=== PATIENT | female | born 1930 | race Caucasian/White ===

== ENCOUNTER 2019-03-28 09:20 | Outpatient (CLI) | payer MEDICARE ==
--- NOTE | 2019-03-28 10:36 | BD ---
BONE DENSITOMETRY: INDICATIONS: Osteoporosis screening. Postmenopausal. FINDINGS: LUMBAR SPINE BMD (g/cm2) T-SCORE L1 1.247 2.3 L2 1.260 2.1 L3 1.322 2.2 L4 1.269 1.9 TOTAL 1.277 2.1 FEMORAL NECK DENSITY 0.573 -2.5 TOTAL 0.746 -1.6 IMPRESSION: 1. The bone mineral density of the lumbar spine is within normal limits. The lumbar spine density m ay be erroneously elevated due to degenerative sclerosis. 2. The bone mineral density of the femoral neck indicates osteoporosis. POS: [facility]
== END 2019-03-28 09:21 | disposition home or self-care (01) ==
LOC: BICMAMMO 09:20
PROVIDERS: ATTEND Internal Medicine Rheumatology
DX: M81.0 Age-related osteoporosis without current pathological fracture (principal); G95.89 Other specified diseases of spinal cord
CPT/HCPCS: 77080

== ENCOUNTER 2019-10-16 14:19 | Inpatient (IN) | payer MEDICARE ==
[2019-10-16 14:49] LABS: Bacteria/HPF 4+ HPF (None Seen); Bilirubin Negative (Negative); Blood, Urine 1+ (Negative); Clarity Turbid (Clear); Glucose, Urine (Dipstick) Normal (Negative); Leukocyte 500 Leu/uL (Negative); Nitrite 2+ (Negative); Protein, Urine (Dipstick) 10 mg/dL (Neg-Trace); RBC/HPF 0-3 HPF (0-3); Urobilinogen Normal mg/dL (Less than 2); WBC/HPF Greater than 50 HPF (0-3)
[2019-10-16 14:57] LABS: #Basophils 0.1 thou/uL (0.0-0.2); #Eosinphils 0.1 thou/uL (0.0-0.7); #Lymphocytes 1.6 thou/uL (1.20-3.40); #Monocytes 0.9 thou/uL (0.11-0.59); #Neutrophils 6.6 thou/uL (1.40-6.50); %Basophils 0.7 % (0.0-1.0); %Eosinophils 1.5 % (0.0-10.0); %Lymphocytes 17.5 % (21.0-51.0); %Monocytes 9.7 % (0.0-10.0); %Neutrophils 70.6 % (42.0-75.0); Hemoglobin 14.1 g/dL (12.0-16.0); Mean Corpuscular HGB CONC 33.2 g/dL (32.0-36.0); Mean Corpuscular Hemoglobin 33.3 pg (27.0-31.0); Mean Platelet Volume 8.8 fL (7.4-10.4); Platelet Count 143 thou/uL (130-400); RBC Distribution Width 13.1 % (11.5-14.5); Red Blood Cell (RBC) Count 4.25 mill/uL (4.20-5.40); White Blood Cell (WBC) Count 9.4 thou/uL (4.8-10.8)
--- NOTE | 2019-10-16 15:06 | RAD ---
FRONTAL RADIOGRAPH CHEST PORTABLE UPRIGHT: Date: 10/16/2019 COMPARISON: 08/24/2019. HISTORY: Confusion and weakness, altered mental status. FINDINGS: Shallow inspiration and kyphotic positioning limits detailed assessment. Heart and mediastinal contou rs appear grossly unchanged. Midline sternotomy wires are present. There is degenerative change invol ving bilateral shoulders. No focal consolidation or alveolar edema. IMPRESSION: Limited portable chest radiograph demonstrating no focal consolidation or alveolar edema. POS: [facility]
[2019-10-16] MEDS ORDERED: cefTRIAXone\\ROCEPHIN 2 GM VIAL ONE (15:14)
[2019-10-16 15:21] LABS: ALT (SGPT) 11 U/L (8-55); AST (SGOT) 18 U/L (5-34); Albumin 3.7 g/dL (3.4-4.8); Alkaline Phosphatase 59 U/L (40-110); Anion Gap 12 mmol/L (10-20); BUN (Urea Nitrogen) 16 mg/dL (9.8-20.1); Bilirubin, Total 2.1 mg/dL (0.2-1.2); Calc. Creatinine Clearance 0 mL/min (70-130); Calcium 10.1 mg/dL (7.8-10.44); Carbon Dioxide 31 mmol/L (23-31); Chloride 100 mmol/L (98-107); Estimated GFR-MDRD 32; Globulin 2.9 g/dL (2.4-3.5); Glucose 102 mg/dL (83-110); Magnesium 1.6 mg/dL (1.6-2.6); Potassium 4.1 mmol/L (3.5-5.1); Protein, Total 6.6 g/dL (6.0-8.3); Sodium 139 mmol/L (136-145)
--- NOTE | 2019-10-16 15:22 | CT ---
CT BRAIN WITHOUT CONTRAST: 10/16/19 HISTORY: Altered mental status. FINDINGS: Correlation is made with the MRI of 09/18/19. 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 The ventricular size is appropriate and the basilar cisterns patent. No evidence of acute infarct, hemorrhage, midline shift, or abnormal extra-axial fluid collections ar e seen. The bony calvarium is intact. There is opacification of the left maxillary sinus. IMPRESSION: No CT evidence of acute intracranial process. POS: [facility]
[2019-10-16 15:43] LABS: CKMB 1.1 ng/mL (0-6.6)
[2019-10-16] MEDS ORDERED: Aspirin Chewable 81 MG TAB ONE (15:47)
[2019-10-16] MEDS ORDERED: Acetaminophen 325 MG TAB PO PRN (21:02)
[2019-10-16] MEDS ORDERED: Lisinopril 10 MG TAB PO PRN (21:09)
[2019-10-16] MEDS ORDERED: Carvedilol 3.125 MG TAB PO SCH (21:15)
[2019-10-16] MEDS ORDERED: Sodium Chloride 0.9% 1,000 ML IV SCH (21:15)
--- NOTE | 2019-10-16 21:22 | PDOC.HHP ---
Hospitalist HPI - History of Present Illness AMS History of Present Illness: PCP: Dr. Elam The patient is confused, so the H&P was obtained from the patient's daughter, Kelsey Sosa via telephone. The patient is an 89/F with PMH significant for afib (rate controlled), HTN, HLD , hypothyroidism that presents to the ER for the above complaint. Ms. Sosa reports that over the past month, the patient's mental status has been fluctuating. Reports some intermittent confusion and having to prompt her to bathe and eat meals. She is able to complete the tasks, but she needs to be directed to do so. Reports that she was recently diagnosed with UTI, started on nitrofurantoin. Her mental status improved while taking the nitrofurantoin, however, over the past week her mental status has been declining again. She also reports that her mother has lived with her over the past 2 years, since the loss of her spouse. She reports she has been on a steady decline ever since. Denies any recent falls or trauma. Denies any changes to home medication regimen. Denies any recent surgeries. Admits to recent UTI with antibiotic therapy. ED Course: T 98.7F, BP 146/98, HR 93, RR 18, Spo2 95% RA UA 4+ bacteria, wBC > 50, + nitrites EKG afib, rate controlled 81 bpm CXR negative for acute cardiopulmonary process CT brain negative for hemorrhage Trop 0.075 LA 1.6 Given 1L NS rocephin 1gm IVPB ASA 324mg Hospitalist ROS - Review of Systems Constitutional: denies: fever, chills, malaise Eyes: denies: pain, vision change, conjunctivae inflammation, eyelid inflammation, redness, other ENT: denies: ear pain, ear discharge, nose pain, nose discharge, nose congestion , mouth pain, mouth swelling, throat pain, throat swelling, other Respiratory: denies: cough, dry, shortness of breath, hemoptysis, SOB with excertion, pleuritic pain, sputum, wheezing, other Cardiovascular: denies: chest pain, palpitations, orthopnea, paroxysmal noc. dyspnea, edema, light headedness, other Gastrointestinal: denies: nausea, vomiting, abdominal pain, diarrhea, constipation, melena, hematochezia, other Genitourinary: reports: dysuria, frequency Musculoskeletal: denies: back pain Skin: denies: rash, bruising Neurological: reports: confusion. denies: weakness, change in speech Hospitalist History - Past Medical History Source: family Cardiac: reports: AFIB (rate controlled), HTN, Hyperlipidemia Gastrointestinal: reports: GERD Endocrine: reports: Hypothyroidism - Past Surgical History Past Surgical History: reports: no pertinent history - Family History Family History: reports: cancer (Breast), cardiac disorder - Social History Smoking Status: Never smoker Alcohol: reports: None Drugs: reports: none Living Situation: With Family Occupation: Lives in [place] with daughter Activity level: independent ambulation (Prompting with ADLs) - Exam General Appearance: NAD, awake alert General - other findings: A&O x 1 to person Eye: PERRL, anicteric sclera ENT: normocephalic atraumatic Neck: supple, no JVD, no thyromegaly, no lymphadenopathy Heart: no murmur, no gallops, no rubs, normal peripheral pulses, irregular Respiratory: CTAB, no wheezes, no rales, no ronchi Gastrointestinal: soft, non-tender, non-distended, normal bowel sounds, no guarding, no rigidity Extremities: no cyanosis, 1+ LE edema Neurological: no focal deficits Psychiatric: normal affect Psychiatric - other findings: oriented to person Hospitalist Results - Labs Result Diagrams: 10/16/19 14:48 10/16/19 14:48 Lab results: WBC 9.4 thou/uL (4.8-10.8) 10/16/19 14:48 Hgb 14.1 g/dL (12.0-16.0) 10/16/19 14:48 Hct 42.7 % (36.0-47.0) 10/16/19 14:48 MCV 100.0 fL (78.0-98.0) H 10/16/19 14:48 Plt Count 143 thou/uL (130-400) 10/16/19 14:48 Neutrophils % 70.6 % (42.0-75.0) 10/16/19 14:48 Sodium 139 mmol/L (136-145) 10/16/19 14:48 Potassium 4.1 mmol/L (3.5-5.1) 10/16/19 14:48 Chloride 100 mmol/L (98-107) 10/16/19 14:48 Carbon Dioxide 31 mmol/L (23-31) 10/16/19 14:48 BUN 16 mg/dL (9.8-20.1) 10/16/19 14:48 Creatinine 1.52 mg/dL (0.6-1.1) H 10/16/19 14:48 Glucose 102 mg/dL (83-110) 10/16/19 14:48 Lactic Acid 1.6 mmol/L (0.5-2.2) 10/16/19 14:48 Calcium 10.1 mg/dL (7.8-10.44) 10/16/19 14:48 Total Bilirubin 2.1 mg/dL (0.2-1.2) H 10/16/19 14:48 AST 18 U/L (5-34) 10/16/19 14:48 ALT 11 U/L (8-55) 10/16/19 14:48 Alkaline Phosphatase 59 U/L (40-110) 10/16/19 14:48 CK-MB (CK-2) 1.1 ng/mL (0-6.6) 10/16/19 14:48 Troponin I 0.075 ng/mL (< 0.028) H 10/16/19 14:48 Serum Total Protein 6.6 g/dL (6.0-8.3) 10/16/19 14:48 Albumin 3.7 g/dL (3.4-4.8) 10/16/19 14:48 Urine Ketones Negative mg/dL (Negative) 10/16/19 14:36 Urine Blood 1+ (Negative) A 10/16/19 14:36 Urine Nitrite 2+ (Negative) A 10/16/19 14:36 Ur Leukocyte Esterase 500 Kamryn/uL (Negative) A 10/16/19 14:36 Urine RBC 0-3 HPF (0-3) 10/16/19 14:36 Urine WBC Greater than 50 HPF (0-3) A 10/16/19 14:36 Ur Squamous Epith Cells 11-20 HPF (0-3) A 10/16/19 14:36 Urine Bacteria 4+ HPF (None Seen) A 10/16/19 14:36 - EKG Interpretation EKG: afib, rate controlled - Radiology Interpretation Chest x-ray Status: report reviewed by me CT scan - head Status: report reviewed by me Hospitalist H&P A/P - Plan Plan: Impression: AMS UTI SCOTT Elevated troponin CKD III afib, rate controlled HTN HLD GERD hypothyroidism 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
[2019-10-16 21:40] LABS: Magnesium 1.5 mg/dL (1.6-2.6); Phosphorus 2.6 mg/dL (2.3-4.7)
[2019-10-16 21:44] LABS: Troponin I 0.078 ng/mL (< 0.028)
[2019-10-17] MEDS ORDERED: Magnesium 2 GM/50 ML 2 GM in Premix Bag 1 BAG IVPB SCH (00:30)
[2019-10-17 01:15] LABS: Troponin I 0.077 ng/mL (< 0.028)
[2019-10-17 05:27] LABS: #Eosinphils 0.2 thou/uL (0.0-0.7); #Lymphocytes 0.6 thou/uL (1.20-3.40); #Monocytes 0.6 thou/uL (0.11-0.59); #Neutrophils 8.6 thou/uL (1.40-6.50); %Basophils 0.3 % (0.0-1.0); %Eosinophils 2.2 % (0.0-10.0); %Lymphocytes 5.8 % (21.0-51.0); %Monocytes 6.3 % (0.0-10.0); %Neutrophils 85.4 % (42.0-75.0); Hemoglobin 13.1 g/dL (12.0-16.0); Mean Corpuscular HGB CONC 32.6 g/dL (32.0-36.0); Mean Corpuscular Hemoglobin 32.9 pg (27.0-31.0); Mean Platelet Volume 8.4 fL (7.4-10.4); Platelet Count 126 thou/uL (130-400); RBC Distribution Width 13.2 % (11.5-14.5); Red Blood Cell (RBC) Count 3.99 mill/uL (4.20-5.40); White Blood Cell (WBC) Count 10.1 thou/uL (4.8-10.8)
[2019-10-17] MEDS: Levothyroxine Sodium 50 MCG TAB PO SCH (05:28)
[2019-10-17 05:45] LABS: Anion Gap 10 mmol/L (10-20); BUN (Urea Nitrogen) 13 mg/dL (9.8-20.1); Calc. Creatinine Clearance 30 mL/min (70-130); Carbon Dioxide 24 mmol/L (23-31); Chloride 106 mmol/L (98-107); Estimated GFR-MDRD 42; Glucose 110 mg/dL (83-110); Magnesium 2.4 mg/dL (1.6-2.6); Potassium 3.3 mmol/L (3.5-5.1); Sodium 137 mmol/L (136-145)
[2019-10-17] MEDS ORDERED: Famotidine 20 MG TAB PO SCH (09:00)
[2019-10-17] MEDS: Calcium Carbonate + Vit D 250 MG TAB PO SCH (09:52)
[2019-10-17] MEDS: Atorvastatin Calcium 20 MG TAB PO SCH (09:53)
[2019-10-17] MEDS: Polyethylene Glycol 3350 17 GM Packet PO SCH (09:53)
[2019-10-17] MEDS: Aspirin 81 mg Enteric Coated Tablet PO SCH (09:53)
[2019-10-17] MEDS: Carvedilol 3.125 MG TAB PO SCH ×2 (09:53→20:56)
[2019-10-17] MEDS: Hyoscyamine Sulfate SL 0.125 mg Tablet PO SCH ×2 (09:53→20:56)
[2019-10-17] MEDS: Lisinopril 20 MG TAB PO SCH (09:53)
--- NOTE | 2019-10-17 09:56 | CON ---
DATE OF CONSULTATION: 10/17/2019 REASON FOR CONSULTATION: Elevated troponin. HISTORY OF PRESENT ILLNESS: Ms. Hannah is a very pleasant 89-year-old woman, who was seen and evaluated in the past. She has a history of CAD, status post bypass surgery x2 in addition to mitral valve annuloplasty. She re-presented with mental status changes. History is currently unobtainable. She is not oriented to time, person, or place. She does not know why she is in the hospital. She does have a previous history of atrial fibrillation, hypertension, hyperlipidemia, and hypothyroidism. PAST MEDICAL HISTORY: CAD, status post bypass surgery, mitral valve annuloplasty, hypertension, CVA, seasonal allergies, osteoporosis, previous PACs. HOME MEDICATIONS: Include: 1. Atorvastatin. 2. Carvedilol. 3. Hyoscyamine. 4. Benazepril. 5. Tramadol. 6. Aspirin. 7. Chandni. 8. Hydrochlorothiazide. 9. Calcium. 10. Tirosint. 11. Pantoprazole. SOCIAL HISTORY: No current alcohol or tobacco use. REVIEW OF SYSTEMS: Unobtainable. PHYSICAL EXAMINATION: GENERAL: Patient is a pleasant woman who is in no acute distress. The patient appears her stated age. VITAL SIGNS: Blood pressure 131/99, pulse 84, temperature 98.3. NEUROLOGIC: She is not oriented to time, person, or place. HEENT: Sclerae without icterus. Mouth has moist mucous membranes with normal pallor. NECK: No JVD. Carotid upstroke brisk. No bruits bilaterally. LUNGS: Clear to auscultation with unlabored respirations. BACK: No scoliosis or kyphosis. CARDIAC: Irregularly irregular. ABDOMEN: Soft, nontender, nondistended. No peritoneal signs present. No hepatosplenomegaly. No abnormal striae. EXTREMITIES: 2+ femoral and 2+ dorsalis pedis pulses. No cyanosis, clubbing, or edema. SKIN: No gross abnormalities. PERTINENT LABORATORY DATA: Hemoglobin 15.4, hematocrit 46.2. Peak troponin 0.04. Echo with Doppler dated 08/16/2019: LVEF 55% to 60%. Grade 3 diastolic dysfunction. Mild MR with [id number] TR. IMPRESSION: 1. Mental status changes. 2. Elevated troponin. 3. Atrial fibrillation. RECOMMENDATIONS: Ms. Hannah did have sinus rhythm with PACs while in the office last month. She now appears to have atrial fibrillation. At this point, we will try and seek a cause to her mental status changes. I am less concerned about her elevated troponin likely secondary to her underlying condition. Would likely need anticoagulation therapy long-term given new-onset atrial fibrillation. We would recommend Eliquis 2.5 mg one p.o. b.i.d. Otherwise, from my standpoint, I have no further recommendations. Job ID: [id number]
[2019-10-17] MEDS: cefTRIAXone\\ROCEPHIN 1 GM in Sodium Chloride 0.9% 100 ML IVPB SCH (15:41)
--- NOTE | 2019-10-17 19:04 | PRG ---
DATE OF SERVICE: 10/17/2019 PRIMARY CARE PHYSICIAN: Dr. Elam. SUBJECTIVE: This is an 89-year-old female with hypertension, hyperlipidemia, hypothyroidism and coronary artery disease, presented to the emergency room with altered mentation. Her workup was consistent with urinary tract infection along with atrial fibrillation. Per Cardiology, the patient was in sinus rhythm last month. Her mentation is slowly improving. She denies any complaints at this time. CURRENT MEDICATIONS: Reviewed. REVIEW OF SYSTEMS: Cannot be reliably obtained due to current mentation. PHYSICAL EXAMINATION: VITAL SIGNS: Temperature of 97.8, pulse of 89, respirations of 20, and blood pressure of 111/67 with O2 saturation 96% on room air. GENERAL: This is an 89-year-old female, in no apparent distress. Mentation is improving. LUNGS: Diminished air entry at bilateral bases with few rhonchi and rales. No wheezing. No accessory muscle use. HEART: S1 and S2 present, irregularly irregular. No rubs or gallops. 2/6 systolic murmur over the mitral area. ABDOMEN: Soft and nontender. Bowel sounds present. No rebound or guarding. No costovertebral angle tenderness. EXTREMITIES: Trace edema in bilateral lower extremity. PSYCHIATRIC: The patient is alert with intermittent confusion. NEUROLOGIC: No new focal deficit. LABORATORY DATA: CBC showed WBC of 10.1 with hemoglobin of 13.1, hematocrit of 40.2, platelet of 126. Chemistry showed sodium of 137, potassium 3.3, chloride of 106, bicarb of 24, BUN of 13, and creatinine of 1.2. Telemetry monitoring by my review showed sinus rhythm. Urine culture showed E coli, sensitivities pending. Blood cultures were negative. Chest x-ray by my review was negative for infiltrate. CT scan of the brain was negative for acute findings. IMPRESSION: 1. Toxic metabolic encephalopathy present on admission. 2. Escherichia coli urinary tract infection. 3. Acute kidney injury on chronic kidney disease, stage 3. 4. Elevated troponin secondary to demand ischemia, suspected type 2 myocardial infarction present on admission. 5. New-onset atrial fibrillation, rate controlled. 6. Hypertension. 7. Hyperlipidemia. 8. Gastroesophageal reflux disease. 9. Hypothyroidism. 10. Abnormal LFTs of unclear etiology. 11. Thrombocytopenia. PLAN: We will continue telemetry monitoring. We will continue ceftriaxone. Magnesium was replaced. IV fluid will be discontinued. We will continue carvedilol. Cardiology recommended Eliquis 2.5 mg twice a day. I discussed with the daughter at the bedside. She will discuss with other family members and let us know tomorrow. We will continue levothyroxine. We will continue other home medications. Recheck labs in a.m. We will check folic acid and vitamin B12 due to macrocytosis that could probably be contributing to her encephalopathy. The patient and the family understands the above plan of care. Job ID: [id number]
[2019-10-18] MEDS ORDERED: Sodium Chloride 0.9% 250 ML IV SCH (04:00)
[2019-10-18 04:29] LABS: #Eosinphils 0.3 thou/uL (0.0-0.7); #Monocytes 0.9 thou/uL (0.11-0.59); #Neutrophils 6.2 thou/uL (1.40-6.50); %Basophils 0.5 % (0.0-1.0); %Lymphocytes 11.7 % (21.0-51.0); %Monocytes 10.5 % (0.0-10.0); %Neutrophils 73.2 % (42.0-75.0); Hemoglobin 12.6 g/dL (12.0-16.0); Mean Corpuscular HGB CONC 32.6 g/dL (32.0-36.0); Mean Corpuscular Hemoglobin 33.2 pg (27.0-31.0); Mean Platelet Volume 8.5 fL (7.4-10.4); Platelet Count 130 thou/uL (130-400); RBC Distribution Width 13.3 % (11.5-14.5); Red Blood Cell (RBC) Count 3.81 mill/uL (4.20-5.40); White Blood Cell (WBC) Count 8.5 thou/uL (4.8-10.8)
[2019-10-18 04:49] LABS: ALT (SGPT) 10 U/L (8-55); AST (SGOT) 13 U/L (5-34); Albumin 2.9 g/dL (3.4-4.8); Alkaline Phosphatase 49 U/L (40-110); Anion Gap 12 mmol/L (10-20); BUN (Urea Nitrogen) 10 mg/dL (9.8-20.1); Bilirubin, Total 1.2 mg/dL (0.2-1.2); Calc. Creatinine Clearance 33 mL/min (70-130); Calcium 8.4 mg/dL (7.8-10.44); Carbon Dioxide 24 mmol/L (23-31); Chloride 105 mmol/L (98-107); Estimated GFR-MDRD 47; Globulin 2.6 g/dL (2.4-3.5); Glucose 106 mg/dL (83-110); Potassium 3.5 mmol/L (3.5-5.1); Protein, Total 5.5 g/dL (6.0-8.3); Sodium 137 mmol/L (136-145)
[2019-10-18] MEDS: Levothyroxine Sodium 50 MCG TAB PO SCH (05:46)
[2019-10-18] MEDS: Saccharomyces boulardii 250 MG CAP PO SCH (09:51)
[2019-10-18] MEDS: Polyethylene Glycol 3350 17 GM Packet PO SCH (09:51)
[2019-10-18] MEDS: Aspirin 81 mg Enteric Coated Tablet PO SCH (09:51)
[2019-10-18] MEDS: Carvedilol 3.125 MG TAB PO SCH ×2 (09:52→21:54)
[2019-10-18] MEDS: Lisinopril 20 MG TAB PO SCH (09:52)
[2019-10-18] MEDS: Atorvastatin Calcium 20 MG TAB PO SCH (09:52)
[2019-10-18] MEDS: Calcium Carbonate + Vit D 250 MG TAB PO SCH (09:52)
[2019-10-18] MEDS: Hyoscyamine Sulfate SL 0.125 mg Tablet PO SCH ×2 (09:56→22:09)
[2019-10-18] MEDS: cefTRIAXone\\ROCEPHIN 1 GM in Sodium Chloride 0.9% 100 ML IVPB SCH (15:15)
[2019-10-18] MEDS ORDERED: Cyanocobalamin (Vitamin B-12) 1,000 MCG TAB PO SCH (21:00)
--- NOTE | 2019-10-18 23:34 | PDOC.HOSPP ---
- Subjective Encounter Date: 10/18/19 Encounter Time: 17:30 Subjective: Patient seen and examined for Encephalopathy - improving. No CP or SOB. Eating better. Participated in therapy. No new complaints. Overnight events noted - Objective Vital Signs & Weight: Vital Signs (12 hours) Temp Pulse Pulse Pulse Resp BP BP 10/18/19 20:00 10/18/19 19:00 97.9 F 82 15 10/18/19 15:22 98.4 F 86 18 10/18/19 14:03 79 87 101/67 104/70 BP Pulse Ox 10/18/19 20:00 95 10/18/19 19:00 109/70 95 10/18/19 15:22 97/63 98 10/18/19 14:03 Weight Admit Weight 127 lb 9.6 oz Weight 127 lb 9.6 oz I&O: 10/17/19 10/18/19 10/19/19 06:59 06:59 06:59 Intake Total 349 649 3304 Output Total 250 1625 Balance 656 700 675 Result Diagrams: 10/18/19 04:04 10/18/19 04:04 Radiology Reviewed by me: Yes (CXR - no infiltrate) EKG Reviewed by me: Yes (Tele Afib) Hospitalist ROS - Review of Systems Cardiovascular: denies: chest pain, palpitations, orthopnea, paroxysmal noc. dyspnea, edema, light headedness, other Gastrointestinal: denies: nausea, vomiting, abdominal pain, diarrhea, constipation, melena, hematochezia, other - Medication Medications: Active Medications Generic Name Dose Route Start Last Admin Trade Name Freq PRN Reason Stop Dose Admin Aspirin 81 mg 10/17/19 09:00 10/18/19 09:51 Ecotrin PO 81 mg DAILY JENNI Administration Atorvastatin Calcium 20 mg 10/17/19 09:00 10/18/19 09:52 Lipitor PO 20 mg DAILY JENNI Administration Calcium/Vitamin D 250 mg 10/17/19 09:00 10/18/19 09:52 Oscal + Vit D PO 250 mg DAILY JENNI Administration Carvedilol 3.125 mg 10/17/19 09:00 10/18/19 21:54 Coreg PO 3.125 mg BID JENNI Administration Cyanocobalamin 1,000 mcg 10/18/19 21:00 10/18/19 21:54 Vitamin B-12 PO 1,000 mcg HS JENNI Administration Hyoscyamine Sulfate 0.125 mg 10/17/19 09:00 10/18/19 22:09 Levsin Sl PO 0.125 mg BID JENNI Administration Ceftriaxone Sodium 1 gm/ 100 mls @ 200 mls/hr 10/17/19 16:00 10/18/19 15:15 Sodium Chloride IVPB 100 mls Q24HR JENNI Administration Levothyroxine Sodium 50 mcg 10/17/19 06:00 10/18/19 05:46 Synthroid PO 50 mcg 0600 JENNI Administration Lisinopril 20 mg 10/17/19 09:00 10/18/19 09:52 Zestril PO 20 mg DAILY JENNI Administration Pantoprazole Sodium 40 mg 10/17/19 09:00 10/18/19 09:52 Protonix PO 40 mg DAILY JENNI Administration Polyethylene Glycol 17 gm 10/17/19 09:00 10/18/19 09:51 Miralax PO 17 gm DAILY JENNI Administration Saccharomyces Boulardii 250 mg 10/18/19 09:00 10/18/19 09:51 Florastor PO 250 mg DAILY JENNI Administration Sodium Chloride 10 ml 10/16/19 21:02 10/16/19 22:42 Flush - Normal Saline IVF 10 ml PRN PRN Administration Saline Flush - Exam General Appearance: NAD Heart: no gallops, no rubs, normal peripheral pulses, irregular Respiratory: no wheezes, no rales, no ronchi, normal chest expansion Gastrointestinal: soft, non-tender, non-distended, normal bowel sounds Neurological: no new deficit Psychiatric: normal affect, A&O x 3 Psychiatric - other findings: intermittent confusion Hosp A/P - Plan PT/OT, DVT proph w/SCDs Toxic Metabolic Encephalopathy (POA) - multifactorial E coli UTI SCOTT on CKD 3 Elevated troponin/?Type 2 [place] - POA New onset Afib - family declining anticoag - understands the risk NSVT Swallow dysfunction HTN HLD GERD Hypothyroidism Plan: Continue Rocephin Cont ASA Blood CX negative Cont IVF HCTZ on hold due to SCOTT Cont other meds as below Cont PT/OT DC planning in 24-48 hr DC Novoa in AM
[2019-10-19 04:42] VITALS: BMI 28.8
[2019-10-19] MEDS: Levothyroxine Sodium 50 MCG TAB PO SCH (06:04)
[2019-10-19] MEDS: Carvedilol 3.125 MG TAB PO SCH (08:49)
[2019-10-19] MEDS: Saccharomyces boulardii 250 MG CAP PO SCH (08:49)
[2019-10-19] MEDS: Calcium Carbonate + Vit D 250 MG TAB PO SCH (08:49)
[2019-10-19] MEDS: Aspirin 81 mg Enteric Coated Tablet PO SCH (08:49)
[2019-10-19] MEDS: Atorvastatin Calcium 20 MG TAB PO SCH (08:49)
[2019-10-19] MEDS: Lisinopril 20 MG TAB PO SCH (08:49)
[2019-10-19] MEDS: Hyoscyamine Sulfate SL 0.125 mg Tablet PO SCH (10:33)
[2019-10-19] MEDS: Polyethylene Glycol 3350 17 GM Packet PO SCH (10:33)
--- NOTE | 2019-10-19 13:00 | DIS ---
DATE OF ADMISSION: 10/16/2019 DATE OF DISCHARGE: 10/19/2019 DISCHARGE DISPOSITION: Home with home health care. ALLERGIES: THE PATIENT IS ALLERGIC TO SULFA. FOLLOWUP: Follow up with primary care physician, Dr. Elam in 1 week. [facility] has been arranged. DISCHARGE MEDICATIONS: 1. Omnicef 300 mg b.i.d. 2. Vitamin B12 1000 mcg daily. 3. HCTZ has been changed to p.r.n. for edema. 4. Multivitamin 1 tablet daily. 5. Florastor 250 mg daily. 6. All other home medications were left unchanged. The patient was seen and examined on the day of discharge. Denies any new complaints. No chest pain, shortness of breath, or palpitations reported. 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 Suarez. BRIEF HOSPITAL COURSE: The patient is an 89-year-old female with paroxysmal atrial fibrillation, coronary artery disease, presented to the hospital with altered mentation. Workup was consistent with E coli UTI along with acute kidney injury as well as atrial fibrillation. Her troponins were elevated at 0.078. She was started on antibiotics. Urine culture showed E coli, which was pansensitive. Antibiotics have been changed to p.o. Blood culture remained negative. For atrial fibrillation, the patient was advised to continue carvedilol. Anticoagulation was recommended by Cardiology, however, the family declined. They understand the risk of stroke without anticoagulation. The patient was also found to have acute kidney injury with creatinine 1.52 on admission. This improved with IV hydration. Creatinine at discharge is 1.1. Hydrochlorothiazide has been changed to p.r.n. She was advised to watch her fluid intake and to stay under 2 L a day. FINAL DIAGNOSES: 1. Toxic metabolic encephalopathy, resolved. 2. Escherichia coli urinary tract infection. 3. Acute kidney injury on chronic kidney disease stage 3. 4. Elevated troponin, suspected due to type 2 myocardial infarction. 5. New onset atrial fibrillation. The patient was in sinus rhythm last month when she was evaluated by Dr. Suarez. Please note that the family declined anticoagulation. 6. Nonsustained ventricular tachycardia. 7. Swallow dysfunction. 8. Hypertension. 9. Hyperlipidemia. 10. Gastroesophageal reflux disease. 11. Hypothyroidism. 12. The patient understands the above plan of care. Job ID: [id number]
[2019-10-19 15:59] VITALS: BP 113/64; TEMP 98
== END 2019-10-19 15:54 | disposition home or self-care (01) | DRG 280 ==
LOC: ERS 14:19 → 2SW 15:55 → OBSVTOIN 15:55 → 2NO 10-17 19:09
PROVIDERS: ADMIT Emergency Medicine; ATTEND Internal Medicine
DX: I48.0 Paroxysmal atrial fibrillation (principal); G92 Toxic encephalopathy; I21.A1 Myocardial infarction type 2; N17.9 Acute kidney failure, unspecified; N39.0 Urinary tract infection, site not specified; I47.2 Ventricular tachycardia; N18.3 Chronic kidney disease, stage 3 (moderate); J30.2 Other seasonal allergic rhinitis; M81.0 Age-related osteoporosis without current pathological fracture; B96.20 Unspecified Escherichia coli [E. coli] as the cause of diseases classified elsewhere; E78.5 Hyperlipidemia, unspecified; K21.9 Gastro-esophageal reflux disease without esophagitis; E03.9 Hypothyroidism, unspecified; I12.9 Hypertensive chronic kidney disease with stage 1 through stage 4 chronic kidney disease, or unspecified chronic kidney disease; Z79.01 Long term (current) use of anticoagulants; Z86.73 Personal history of transient ischemic attack (TIA), and cerebral infarction without residual deficits
CPT/HCPCS: 36415; 36416; 51701; 70450; 71045; 80048; 80053; 81003; 81015; 82553; 82607; 82746; 83605; 83735; 83880; 84100; 84484; 85025; 87040; 87077; 87086; 87186; 93005; 94760; 96365; J0696; J3475; J3490